=== PATIENT | female | born 1990 | race Caucasian/White ===

== ENCOUNTER 2017-09-03 22:48 | Emergency (ER) | payer BC ==
--- NOTE | 2017-09-04 00:11 | EDM.PDOC ---
ED HPI GENERAL MEDICAL PROBLEM - General Chief Complaint: CRAP GAME [employer]OX PERSON Problem Stated Complaint: 40 WEEKS GESTATIN AND LOST MUCOUS PLUG Time Seen by Provider: 09/03/17 22:50 Source of Information: Reports: Patient History Limitations: Reports: No Limitations - History of Present Illness INITIAL COMMENTS - FREE TEXT/NARRATIVE: Pt is 27 year old [id number] at 40 wks IUP today. Apparently patient claims that she lost her mucus plug about 2 hrs ago and since then has been having uterine contractions every 5 minutes. contractions are strong and last for good 1 minutes. Has been feeling good movement. No vaginal bleeding. no fever or chills. Pt was planned for induction of labour next Friday at [facility]. Pt called [facility] and was told to come here for quick exam. Onset: Today Onset Date: 09/03/17 Onset Time: 21:00 Location: Reports: Abdomen Quality: Reports: Ache Severity: Moderate Improves with: Reports: None Worsens with: Reports: None Associated Symptoms: Denies: Confusion, Chest Pain, Cough, Fever/Chills, Headaches, Nausea/Vomiting, Rash, Seizure, Shortness of Breath, Syncope, Weakness ED ROS GENERAL - Review of Systems Review Of Systems: See Below Constitutional: Denies: Fever, Chills HEENT: Denies: Rhinitis, Throat Pain, Throat Swelling Respiratory: Denies: Shortness of Breath, Wheezing, Cough, Sputum Cardiovascular: Denies: Chest Pain, Syncope Endocrine: Denies: Fatigue GI/Abdominal: Reports: Abdominal Pain. Denies: Nausea, Vomiting : Denies: Dysuria, Flank Pain Musculoskeletal: Denies: Joint Pain, Joint Swelling Skin: Denies: Pruritis, Rash ED EXAM, GENERAL - Physical Exam Exam: See Below Exam Limited By: No Limitations General Appearance: Alert, WD/WN, No Apparent Distress, Other (Exam done with [place]: Peter Vasquez RN) Eye Exam: Bilateral Eye: EOMI, PERRL Ears: Normal External Exam, Normal Canal, Hearing Grossly Normal, Normal TMs Ear Exam: Bilateral Ear: Auricle Normal, Canal Normal, TM normal Nose: Normal Inspection, Normal Mucosa, No Blood Throat/Mouth: Normal Inspection, Normal Lips, Normal Teeth, Normal Gums, Normal Oropharynx, Normal Voice, No Airway Compromise Head: Atraumatic, Normocephalic Neck: Normal Inspection, Supple, Non-Tender, Full Range of Motion Respiratory/Chest: No Respiratory Distress, Lungs Clear, Normal Breath Sounds, No Accessory Muscle Use, Chest Non-Tender Cardiovascular: Normal Peripheral Pulses, Regular Rate, Rhythm, No Edema, No Gallop, No JVD, No Murmur, No Rub (Female) Exam: Normal External Exam, Enlarged Uterus (gravid 40 week uterus) , Heart Tones (140-160s reacting and reassuring), Other (On digital exam. Preesenting part if head. cervix is 3 cm dilated 100% effaced and anterior.). No: Uterine Tenderness Course - Vital Signs Text/Narrative:: Pt was placed on Fuig for monitoring. heart tones are in 140s and very reactive and reassuring. She does contract every 4-5 minutes on the monitor and lasts for 1 minute. Her cervix is 3cm dilated 100% effaced. As she is primigravida she does appear to be in active early labour. Called [facility] and discussed with L&D nurse. Pt advised to go down to [facility] now by private vehicle. Departure - Departure Time of Disposition: 23:15 Disposition: DC/Tfer to Acute Hospital 02 Condition: Fair Clinical Impression: Primigravida, Active labour - Discharge Information Forms: ED Department Discharge - Problem List & Annotations (1) Active labour SNOMED Code(s): 21174226 Code(s): HGE7944 - Status: Acute (2) Primigravida SNOMED Code(s): 934799694 Code(s): Z34.00 - ENCNTR FOR SUPRVSN OF NORMAL FIRST , UNSP TRIMESTER Status: Acute - Problem List Review Problem List Initiated/Reviewed/Updated: Yes - Assessment/Plan Assessment:: @ 40 wks IUP in active labour Plan: Pt was placed on Fuig for monitoring. heart tones are in 140s and very reactive and reassuring. She does contract every 4-5 minutes on the monitor and lasts for 1 minute. Her cervix is 3cm dilated 100% effaced. As she is primigravida she does appear to be in active early labour. Called [facility] and discussed with L&D nurse. Pt advised to go down to [facility] now by private vehicle.
== END 2017-09-03 23:45 ==
LOC: LB.ED 22:48
DX: Z34.03 Encounter for supervision of normal first pregnancy, third trimester (principal)
CPT/HCPCS: 99284